=== PATIENT | female | born 1995 | race African-American/Black ===

== ENCOUNTER 2017-03-01 07:29 | Emergency (ER) | payer SELFPAY ==
[~2017-03-01] VITALS: Ht 149.9 cm; Wt 65.8 kg
[~2017-03-01 07:29] MED LIST: CIPRO500 MG PO; ENEMA133 M1 RC; IBUPROFEN600 M1 PO; IBUPROFEN600 MG ORAL; LACTULOSE20 GM/301 ORAL; NITROFURANTOIN100 M2 ORAL; NKM; VIBRAMYCIN100 MG ORAL; ZOFRAN ODT4 MG ORAL
--- NOTE | 2017-03-01 08:09 | Emergency Room Report ---
History of Present Illness General Chief Complaint: Pain Source: Patient Present Illness HPI Patient believes she twisted her ankle 2 weeks ago. Still has pain when standing at work and long periods. No eval prior. Pain is reported 10/10 worse when standing, not radiating, aching and sometimes sharp. More dorsolateral ankle. Able to walk. No meds taken. No dyspnea, fevers, NVD, dysuria. Works [employer] and has to be on feet most of time. 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 Review of Systems All Other Systems: negative except mentioned in HPI Physical Exam Vital Signs Date Time Temp Pulse Resp B/P Pulse Ox O2 Delivery O2 Flow Rate FiO2 03/01/17 07:41 97.5 93 20 103/69 98 Room Air Sp02 EP Interpretation: reviewed, normal General Appearance: well appearing, no apparent distress Head: normocephalic, atraumatic Eyes: bilateral eye PERRL, bilateral eye normal inspection ENT: hearing grossly normal, normal voice, moist mucus membranes Neck: full range of motion, supple Respiratory: no respiratory distress, speaking full sentences Musculoskeletal: digits/nails normal, gait/station normal, normal range of motion, no calf tenderness, other - some dorsolateral tenderness R ankle - ligaments intact, knee not tender Neurologic: alert, oriented x3, motor strength/tone normal, sensory intact, normal gait Psychiatric: mood/affect normal Skin: no rash Medical Decision Making Diagnostic Impression: Primary Impression: Right ankle sprain Qualified Codes: S93.401A - Sprain of unspecified ligament of right ankle, initial encounter ER Course Patient with continued ankle pain 2 weeks after injury. DDx: fx, sprain, contusion, neuroma, gout amongst others. Exam against gout. Xrays indicated. Motrin given. Xrays normal. Air cast applied by tech - position excellent. Neurovasc normal checked by me. Patient improved. Concern over receiving work note. Patient stable for outpatient observation and treatment Other X-Ray Diagnostic Results Other X-Ray Diagnostic Results : X-Ray ordered: R ankle Indication: Pain EP Interpretation: Yes Interpretation: no dislocation, no soft tissue swelling, no fractures Impression: No acute disease Interpreting ER Provider: Electronic signiture Puneet Nelson MD Last Vital Signs Date Time Temp Pulse Resp B/P Pulse Ox O2 Delivery O2 Flow Rate FiO2 03/01/17 09:17 97.9 83 16 90/61 98 Room Air Status: improved Disposition: HOME, SELF-CARE Condition: Improved Scripts Ibuprofen* (MOTRIN*) 600 Mg Tablet 600 MG ORAL Q6H Y for For Pain, #20 TAB Prov: Puneet Nelson M.D. 03/01/17 Puneet Nelson M.D. Mar 01, 2017 08:09
[2017-03-01] MEDS ORDERED: IBUPROFEN600 MG ORAL (09:08)
[2017-03-01 09:17] VITALS: BP 90/61
--- NOTE | 2017-03-01 10:57 | Diagnostic Imaging Report ---
Indication: PAIN Technique: 3 views of the right ankle Comparison: none Findings: No acute fractures. No dislocations. Joint spaces are preserved Impression: Negative
== END 2017-03-01 09:20 | disposition home or self-care (01) ==
LOC: EMR 08:15
DX: S93.401A Sprain of unspecified ligament of right ankle, initial encounter (principal); X50.1XXA Overexertion from prolonged static or awkward postures, initial encounter; Y92.89 Other specified places as the place of occurrence of the external cause
CPT/HCPCS: 99283

== ENCOUNTER 2017-09-28 09:38 | Emergency (ER) | payer SELFPAY ==
[~2017-09-28] VITALS: Ht 152.4 cm; Wt 65.8 kg
[2017-09-28 09:50] VITALS: BP 119/65
--- NOTE | 2017-09-28 10:04 | Emergency Room Report ---
History of Present Illness General Chief Complaint: Skin Rash/Abscess Source: Patient Present Illness HPI Patient presents with complaints of irritation to the front fore head bilateral temporal area along with the neck region posteriorly patient used A hair products essentially what sounds to be a mouse type product several days ago The day after she realized that the front of the hair in the neck area was getting irritated She did not use the material since then however has noticed the irritation continuing Areas also itchy Denies any fevers or chills denies any visual changes and presents for further intervention Allergies: Coded Allergies: No Known Allergies (Unverified , 11/30/12) Patient History Past Medical History: see triage record Pertinent Family History: none Last Menstrual Period: now Now: No - Reviewed Nursing Documentation: PMH: Agreed, PSxH: Agreed Nursing Documentation-PMH Past Medical History: No History, Except For 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 Review of Systems All Other Systems: negative except mentioned in HPI Physical Exam Vital Signs Date Time Temp Pulse Resp B/P (MAP) Pulse Ox O2 Delivery O2 Flow Rate FiO2 09/28/17 09:40 97.9 85 18 117/65 98 Room Air Sp02 EP Interpretation: reviewed, normal General Appearance: well appearing, no apparent distress Head: normocephalic, atraumatic Eyes: bilateral eye PERRL, bilateral eye EOMI ENT: hearing grossly normal, normal pharynx, TMs + canals normal, uvula midline Neck: supple, thyroid normal Respiratory: lungs clear Cardiovascular #1: regular rate, rhythm, no edema Gastrointestinal: non tender, soft Genitourinary: no CVA tenderness Musculoskeletal: back normal Neurologic: alert, oriented x3, responsive Skin: other - This has area of mild erythema just at the line of the hairline in the front scalp region also just in the temporal region at the edge of the hairline patient also has fine erythema base with mild raised maculopapular areas in the occipital lower neck area posteriorly, no urticaria no sloughing of the skin no target cell appearance Lymphatic: no adenopathy Medical Decision Making Diagnostic Impression: Primary Impression: Rash and other nonspecific skin eruption Additional Impression: Contact dermatitis ER Course Patient shows signs of what appeared to be likely contact dermatitis Was treated with oral medications here low-dose steroid cream was provided for the neck region mainly she was encouraged not to use that for the facial area and will require close outpatient followup Patient will also avoid contact with that material Last Vital Signs Date Time Temp Pulse Resp B/P (MAP) Pulse Ox O2 Delivery O2 Flow Rate FiO2 09/28/17 09:50 97.9 73 16 119/65 99 Room Air Status: improved Disposition: HOME, SELF-CARE Condition: Improved Additional Instructions: Patient is provided with the discharge instructions notified to follow up with primary doctor in the next 2-3 days otherwise return to the er with any worsening symptoms. Please note that this report is being documented using [employer] technology. This can lead to erroneous entry secondary to incorrect interpretation by the dictating instrument. ALEXEI SANCHEZ D.O. Sep 28, 2017 10:04
[2017-09-28] MEDS ORDERED: HYDROCORTISONE-30 GM TOPIC (10:06)
[2017-09-28] MEDS ORDERED: BENADRYL25 MG ORAL (10:06)
[2017-09-28] MEDS ORDERED: PREDNISONE20 MG ORAL (10:06)
[2017-09-28 10:22] VITALS: BP 119/65
== END 2017-09-28 10:27 | disposition home or self-care (01) ==
LOC: EMR 10:01
DX: R21 Rash and other nonspecific skin eruption (principal); L25.9 Unspecified contact dermatitis, unspecified cause
CPT/HCPCS: 99283; J7512

== ENCOUNTER 2017-12-20 01:33 | Emergency (ER) | payer SELFPAY ==
[~2017-12-20] VITALS: Ht 149.9 cm; Wt 65.8 kg
[~2017-12-20 01:33] MED LIST changes: +BENADRYL25 MG ORAL; +HYDROCORTISONE-30 GM TOPIC; +PREDNISONE20 MG ORAL
[2017-12-20] MEDS ORDERED: TRUFORM COMPRE1 EACH MC (01:56)
[2017-12-20 02:02] VITALS: BP 117/82
--- NOTE | 2017-12-20 03:45 | Emergency Room Report ---
History of Present Illness General Chief Complaint: Lower Extremity Injury Source: Patient Present Illness HPI 22-year-old female presents ED for evaluation. Complaining of left ankle pain and swelling. On and off for the last 4 weeks. Pain is throbbing, 9 out of 10 , nonradiating. Denies any recent injury. Denies chest pain or shortness of breath. 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 States that when she goes home and rest her feet swelling does improve. No other aggravating relieving factors. 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 Review of Systems All Other Systems: negative except mentioned in HPI Physical Exam Vital Signs Date Time Temp Pulse Resp B/P (MAP) Pulse Ox O2 Delivery O2 Flow Rate FiO2 12/20/17 01:37 98.4 84 16 117/82 96 Room Air 98.4 Sp02 EP Interpretation: reviewed, normal General Appearance: no apparent distress, alert, GCS 15, non-toxic Head: normocephalic Eyes: bilateral eye normal inspection, bilateral eye PERRL ENT: normal ENT inspection Neck: normal inspection Respiratory: normal inspection Cardiovascular #1: normal inspection Gastrointestinal: normal inspection Rectal: deferred Genitourinary: no CVA tenderness Musculoskeletal: back normal, gait/station normal, normal range of motion, tender - L ankle Neurologic: alert, oriented x3, responsive, motor strength/tone normal, sensory intact, speech normal Psychiatric: judgement/insight normal, memory normal, mood/affect normal, no suicidal/homicidal ideation Skin: normal color, no rash, warm/dry, well hydrated Lymphatic: no adenopathy Medical Decision Making Diagnostic Impression: Primary Impression: Pedal edema ER Course Hospital Course 22-year-old female presents to ED complaining of left ankle pain no trauma Differential diagnoses include: Fracture, dislocation, sprain, contusion, bursitis Clinical course Patient placed on stretcher. After initial history, physical exam reveals a female in no acute distress. There is some tenderness to the left ankle. Full range of motion noted. No bruising. No point tenderness. No calf pain or swelling. No erythema or induration I discussed findings with patient. Recommend ice and elevation with anti- inflammatories. Recommend compression stockings. no indication for xays at this time. Diagnosis - pedal edema stable and discharged to home with prescription for Motrin. apply ice. elevated. Followup with PMD. Return to ED if symptoms recur or worsen Last Vital Signs Date Time Temp Pulse Resp B/P (MAP) Pulse Ox O2 Delivery O2 Flow Rate FiO2 12/20/17 02:02 98.4 16 117/82 96 Room Air 209.1 12/20/17 01:37 84 Status: improved Disposition: HOME, SELF-CARE Condition: Stable Scripts Comp.stocking,Knee,Regular,Lrg (TRUFORM COMPRESSION STOCKING) 1 Each Each EACH , #2 Prov: Matheus Trivedi MD 12/20/17 Referrals: NOT CHOSEN IPA/,REFERRING (PCP) Patient Instructions: Edema, [id number] Matheus Trivedi MD December 20, 2017 03:44
== END 2017-12-20 02:10 | disposition home or self-care (01) ==
LOC: EMR 01:55
DX: R60.0 Localized edema (principal); M25.572 Pain in left ankle and joints of left foot
CPT/HCPCS: 99283